=== PATIENT | female | born 1990 | race Caucasian/White ===

== ENCOUNTER 2020-07-04 15:16 | Emergency (ER) | payer OTHER ==
[~2020-07-04] VITALS: Ht 162.6 cm; Wt 61.2 kg
[2020-07-04 17:28] VITALS: BP 125/66
== END 2020-07-04 17:59 | disposition home or self-care (01) ==
LOC: EDBD 15:16 → ER 15:16
DX: S40.021A Contusion of right upper arm, initial encounter (principal); M25.512 Pain in left shoulder; M25.531 Pain in right wrist; Y08.89XA Assault by other specified means, initial encounter; Y93.89 Activity, other specified; Y92.89 Other specified places as the place of occurrence of the external cause; Y99.8 Other external cause status
CPT/HCPCS: 73030; 73110